=== PATIENT | female | born 1975 | race Caucasian/White ===

== ENCOUNTER 2024-08-04 20:51 | Emergency (ER) | payer MEDICAID ==
[~2024-08-04] VITALS: Ht 165.1 cm; Wt 73.0 kg
[~2024-08-04 20:51] MED LIST: CELEXA; FAMO40TA70 PO; INDOCIN; PSEU120T56 MT; SIMV-343 PO
[2024-08-04] MEDS: SODIUM CHLORIDE 0.9% 1,000 ML IV ONE (21:00)
[2024-08-04] MEDS ORDERED: PANTOPRAZOLE SODIUM 40 MG/VIAL IV STA (21:00)
[2024-08-04] MEDS: ONDANSETRON HCL 4MG/2ML INJ IV STA (21:00)
[2024-08-04 21:03] VITALS: O2SAT 97
[2024-08-04 23:37] LABS: BASOPHILS % 0.2 % (0.0-2.0); EOSINOPHILS % 0.1 % (0.0-5.0); HEMATOCRIT. 40.5 % (36.0-48.0); HEMOGLOBIN. 13.6 g/dL (12.0-16.0); LYMPHOCYTES % 11.6 % (20.0-50.0); MEAN CORPUSCULAR HEMOGLOBIN 31.5 pg (28.0-32.0); MEAN CORPUSCULAR HGB CONC 33.5 g/dL (31.0-37.0); MEAN CORPUSCULAR VOLUME 94.1 fL (81.0-99.0); MEAN PLATELET VOLUME 8.2 fl (7.4-10.4); MONOCYTES % 2.8 % (2.0-8.0); NEUTROPHILS % 85.3 % (40.0-76.0); PLATELET 334 x1000/uL (130-400); RED CELL DISTRIBUTION WIDTH 13.2 % (11.6-14.6); WHITE BLOOD COUNT 12.7 x1000/uL (4.5-11.0)
[2024-08-04 23:41] LABS: CHLORIDE 105 mEq/L (98-107); POTASSIUM 3.6 mEq/L (3.5-5.1); SODIUM 139 mEq/L (136-145)
[2024-08-04 23:42] LABS: CALCIUM 9.5 mg/dL (8.7-10.4); CARBON DIOXIDE 26 mEq/L (21-32)
[2024-08-04 23:47] LABS: CREATININE 0.7 mg/dL (0.6-1.0); ETHANOL BLOOD 117 mg/dL (<10); GLUCOSE 113 mg/dL (70-105); UREA NITROGEN BLOOD 13 mg/dL (9-23)
[2024-08-04 23:49] LABS: ALANINE AMINOTRANSFERASE 29 IU/L (10-49); ALBUMIN 4.7 g/dL (3.2-4.8); ASPARTATE AMINOTRANSFERASE 32 IU/L (<34); PROTEIN TOTAL 7.7 g/dL (6.0-8.3); PROTHROMBIN TIME 10.7 sec (9.6-11.0)
[2024-08-05] LABS: BILIRUBIN TOTAL 0.2 mg/dL (0.1-1.0)
[2024-08-05 00:02] LABS: BILIRUBIN DIRECT < 0.1 mg/dL (<=3.0)
[2024-08-05] MEDS ORDERED: PANTOPRAZOLE SODIUM 40 MG/VIAL IV STA (00:28)
[2024-08-05] MEDS: ONDANSETRON HCL 4MG/2ML INJ IV NR (00:59)
[2024-08-05] MEDS: PANTOPRAZOLE SODIUM 40 MG/VIAL IV NR (00:59)
[2024-08-05 06:43] VITALS: BP 117/61; PULSE 83; RESP 18; TEMP 36.66960; O2SAT 98
== END 2024-08-05 06:44 | disposition home or self-care (01) ==
LOC: ER 20:51
DX: R11.2 Nausea with vomiting, unspecified (principal); I10 Essential (primary) hypertension; E05.90 Thyrotoxicosis, unspecified without thyrotoxic crisis or storm; F10.129 Alcohol abuse with intoxication, unspecified; Z79.899 Other long term (current) drug therapy
CPT/HCPCS: 80076; 80048; 80320; 83690; 85025; 85610; 36415; 71045; 96361; 99284; 96374; 96375; J7030; J2405; J2470; G0480